=== PATIENT | male | born 1980 | race Caucasian/White ===

== ENCOUNTER → 2017-09-19 | Outpatient (CLI) | payer OTHER ==
--- NOTE | 2017-09-19 11:50 | CT ---
EXAMINATION TYPE: CT abdomen pelvis wo/w con DATE OF EXAM: 09/19/2017 COMPARISON: 12/08/2015 HISTORY: 36-year-old male complains of periumbilical pain and bloody stool. TECHNIQUE: Contiguous axial scanning of the abdomen and pelvis before and after administration of 100 ml Isovue 300 IV contrast. Delayed images through the kidneys and coronal/sagittal reconstructions performed. CT DLP: 2396 mGycm Automated exposure control for dose reduction was used. FINDINGS: Heart normal size without pericardial effusion. Lung bases clear without pleural effusion. Tiny subcentimeter hypodensity inferior peripheral right liver lobe, unchanged from 2016 and is too s mall for accurate CT catheterization, likely tiny cyst. Portal venous system is patent. No biliary du ctal dilatation. The gallbladder, adrenal glands, kidneys, spleen, and pancreas appear within normal limits. No dilated small bowel, free fluid, or free air. Normal appendix. Oral contrast progressed to the lower descending colon. Suggestion of sigmoid diverticulosis. There i s moderate circumferential wall thickening along the mid sigmoid. Some adjacent fat stranding likely relates to prominent pericolonic vessels. The overall length of involved bowel segment measures 11 cm long. No mesenteric or retroperitoneal lymphadenopathy. Bladder urine distended. Prostate gland measures 4.3 cm wide. No abnormal fluid collection in the pel vis or pelvic lymphadenopathy. Bones: No osseous destructive process. IMPRESSION: AN 11 CM LONG SEGMENT OF MID SIGMOID COLON SHOWS MODERATE CIRCUMFERENTIAL WALL THICKENING. CORRELATE FOR INFECTIOUS/INFLAMMATORY COLITIS OR CHRONIC DIVERTICULITIS. DIRECT VISUALIZATION TO EXCLUDE NEOPLA SM AFTER TREATMENT.
== END | disposition home or self-care (01) ==
LOC: RADCTMAIN 09:40
PROVIDERS: ATTEND Family Medicine
DX: R93.3 Abnormal findings on diagnostic imaging of other parts of digestive tract (principal); R10.9 Unspecified abdominal pain
CPT/HCPCS: 74178; Q9967

== ENCOUNTER 2021-11-29 10:33 | Emergency (ER) | payer OTHER ==
[2021-11-29 11:51] VITALS: TEMP 97.8
[2021-11-29] MEDS ORDERED: methylPREDNISolone SOD SUCCI 125 MG/2 ML VIAL IV STA (15:42)
[2021-11-29] MEDS ORDERED: FAMOTIDINE 20 MG/2 ML VIAL IV STA (15:42)
[2021-11-29] MEDS ORDERED: diphenhydrAMINE 50 MG/ML 1 ML VIAL IVP STA (15:42)
--- NOTE | 2021-11-29 15:45 | ED ---
General Adult HPI - General Chief complaint: Abdominal Pain Stated complaint: diverticulitis Time Seen by Provider: 11/29/21 15:26 Source: patient Mode of arrival: ambulatory Limitations: no limitations - History of Present Illness Initial comments: Dictation was produced using [employer] dictation software. please excuse any grammatical, word or spelling errors. Chief Complaint: 41-year-old male presents emergency department for persistent abdominal pain History of Present Illness: This is a 41-year-old male presents emergency depar tment for persistent abdominal pain. Approximately 3 weeks ago he was seen here in emergency department for suprapubic abdominal pain. He had a computed tomography scan performed that showed uncomplicated diverticulitis. Patient was put on a course of Augmentin discharge. He followed up with his primary care doctor for follow-up. He states that his symptoms never really improved. He was put on a second course of antibiotics by his primary care doctor. Patient states he is on day 8 of the second round of antibiotics. Patient states that his symptoms did not really improve. He spoke with his will call his primary care doctor's office he was instructed to come to the emergency dep artment. Patient has any fevers. He states that he does have some pelvic pain whenever he urinates. Denies any fever or constitutional symptoms. Patient offered pain medications however he refused. The ROS documented in this emergency department record has been reviewed and confirmed by me. Those systems with pertinent positive or negative responses have been documented in the HPI. All other systems are other negative and/or noncontributory. PHYSICAL EXAM: General Impression: Alert and oriented x3, not in acute distress HEENT: Normocephalic atraumatic, extra-ocular movements intact, pupils equal and reactive to light bilaterally, mucous membranes moist. Cardiovascular: Heart regular rate and rhythm Chest: Able to complete full sentences, no retractions, no tachypnea Abdomen: abdomen soft, very mild palpatory tenderness to the suprapubic area, non-distended, no organomegaly Musculoskeletal: Pulses present and equal in all extremities, no peripheral edema Motor: no focal deficits noted Neurological: CN II-XII grossly intact, no focal motor or sensory deficits noted Skin: Intact with no visualized rashes Psych: Normal affect and mood ED course: 41-year-old male presents emergency department for persistent suprapubic abdominal pain after being diagnosed with diverticulitis 3 weeks ago. Patient still having symptoms despite being on his second course of antibiotics. Vital signs upon arrival are within acceptable limits. Laboratory evaluation obtained. CBC, coag panel, metabolic panel is unremarkable. Lactic acidosis. Urinalysis is negative. Computed tomography scan of the abdomen and pelvis shows questionable minimal sigmoid colonic diverticulitis versus chronic changes with no acute abnormality. Patient reevaluated bedside [place] stable medical condition. Has point patient seems stable for discharge. Advised follow-up with primary care doctor. offered prescription for pain medicines and refused. - Related Data Home Medications Medication Instructions Recorded Confirmed Ciprofloxacin HCl [Cipro] 500 mg PO BID 11/29/21 11/29/21 metroNIDAZOLE [Flagyl] 500 mg PO TID 11/29/21 11/29/21 Allergies Allergy/AdvReac Type Severity Reaction Status Date / Time Iodinated Contrast Media Allergy Unknown Verified 11/29/21 16:14 Review of Systems ROS Statement: Those systems with pertinent positive or pertinent negative responses have been documented in the HPI. ROS Other: All systems not noted in ROS Statement are negative. Past Medical History Additional Past Medical History / Comment(s): diverticulitis History of Any Multi-Drug Resistant Organisms: None Reported Past Surgical History: Heart Catheterization Past Psychological History: Depression Smoking Status: Current every day smoker Past Alcohol Use History: None Reported Past Drug Use History: None Reported General Exam Limitations: no limitations Course Vital Signs 11/29/21 11/29/21 11:48 16:40 Temperature 97.8 F Pulse Rate 78 78 Respiratory 22 16 Rate Blood Pressure 127/77 138/78 O2 Sat by Pulse 97 98 Oximetry Medical Decision Making - Lab Data Result diagrams: 11/29/21 15:55 11/29/21 15:55 Lab Results 11/29/21 11/29/21 11/29/21 Range/Units 15:55 15:55 15:55 WBC 10.4 (3.8-10.6) k/uL RBC 5.11 (4.30-5.90) m/uL Hgb 15.5 (13.0-17.5) gm/dL Hct 47.2 (39.0-53.0) % MCV 92.2 (80.0-100.0) fL MCH 30.4 (25.0-35.0) pg MCHC 32.9 (31.0-37.0) g/dL RDW 11.7 (11.5-15.5) % Plt Count 181 (150-450) k/uL MPV 8.3 Neutrophils % 65 % Lymphocytes % 26 % Monocytes % 4 % Eosinophils % 3 % Basophils % 1 % Neutrophils # 6.8 (1.3-7.7) k/uL Lymphocytes # 2.7 (1.0-4.8) k/uL Monocytes # 0.5 (0-1.0) k/uL Eosinophils # 0.3 (0-0.7) k/uL Basophils # 0.1 (0-0.2) k/uL PT 11.6 (9.0-12.0) sec INR 1.1 (<1.2) APTT 25.7 (22.0-30.0) sec Sodium 139 (137-145) mmol/L Potassium 4.1 (3.5-5.1) mmol/L Chloride 103 (98-107) mmol/L Carbon Dioxide 24 (22-30) mmol/L Anion Gap 12 mmol/L BUN 14 (9-20) mg/dL Creatinine 0.98 (0.66-1.25) mg/dL Est GFR (CKD-EPI)AfAm >90 (>60 ml/min/1.73 sqM) Est GFR (CKD-EPI)NonAf >90 (>60 ml/min/1.73 sqM) Glucose 89 (74-99) mg/dL Plasma Lactic Acid Sd (0.7-2.0) mmol/L Calcium 9.6 (8.4-10.2) mg/dL Total Bilirubin 0.4 (0.2-1.3) mg/dL AST 37 (17-59) U/L ALT 22 (4-49) U/L Alkaline Phosphatase 59 (38-126) U/L Total Protein 7.3 (6.3-8.2) g/dL Albumin 4.9 (3.5-5.0) g/dL Urine Color Urine Appearance (Clear) Urine pH (5.0-8.0) Ur Specific [place] (1.001-1.035) Urine Protein (Negative) Urine Glucose (UA) (Negative) Urine Ketones (Negative) Urine Blood (Negative) Urine Nitrite (Negative) Urine Bilirubin (Negative) Urine Urobilinogen (<2.0) mg/dL Ur Leukocyte Esterase (Negative) Urine Mucus (None) /hpf 09/15/22 09/15/22 Range/Units 15:55 15:55 WBC (3.8-10.6) k/uL RBC (4.30-5.90) m/uL Hgb (13.0-17.5) gm/dL Hct (39.0-53.0) % MCV (80.0-100.0) fL MCH (25.0-35.0) pg MCHC (31.0-37.0) g/dL RDW (11.5-15.5) % Plt Count (150-450) k/uL MPV Neutrophils % % Lymphocytes % % Monocytes % % Eosinophils % % Basophils % % Neutrophils # (1.3-7.7) k/uL Lymphocytes # (1.0-4.8) k/uL Monocytes # (0-1.0) k/uL Eosinophils # (0-0.7) k/uL Basophils # (0-0.2) k/uL PT (9.0-12.0) sec INR (<1.2) APTT (22.0-30.0) sec Sodium (137-145) mmol/L Potassium (3.5-5.1) mmol/L Chloride (98-107) mmol/L Carbon Dioxide (22-30) mmol/L Anion Gap mmol/L BUN (9-20) mg/dL Creatinine (0.66-1.25) mg/dL Est GFR (CKD-EPI)AfAm (>60 ml/min/1.73 sqM) Est GFR (CKD-EPI)NonAf (>60 ml/min/1.73 sqM) Glucose (74-99) mg/dL Plasma Lactic Acid Sd 0.6 L (0.7-2.0) mmol/L Calcium (8.4-10.2) mg/dL Total Bilirubin (0.2-1.3) mg/dL AST (17-59) U/L ALT (4-49) U/L Alkaline Phosphatase (38-126) U/L Total Protein (6.3-8.2) g/dL Albumin (3.5-5.0) g/dL Urine Color Yellow Urine Appearance Clear (Clear) Urine pH 5.5 (5.0-8.0) Ur Specific [place] 1.016 (1.001-1.035) Urine Protein Negative (Negative) Urine Glucose (UA) Negative (Negative) Urine Ketones Negative (Negative) Urine Blood Negative (Negative) Urine Nitrite Negative (Negative) Urine Bilirubin Negative (Negative) Urine Urobilinogen <2.0 (<2.0) mg/dL Ur Leukocyte Esterase Trace H (Negative) Urine Mucus Rare H (None) /hpf Disposition Clinical Impression: Abdominal pain Disposition: HOME SELF-CARE Condition: Good Instructions (If sedation given, give patient instructions): Abdominal Pain (ED) Is patient prescribed a controlled substance at d/c from ED?: No Referrals: Oscar Cardoza DO [Primary Care Provider] - 1-2 days Time of Disposition: 17:44
[2021-11-29 16:10] LABS: Appearance,Urine Clear (Clear); Basophils # (A) 0.1 k/uL (0-0.2); Basophils % (A) 1 %; Bilirubin,Urine Negative (Negative); Blood,Urine Negative (Negative); Color,Urine Yellow; Eosinophils # (A) 0.3 k/uL (0-0.7); Eosinophils % (A) 3 %; Glucose,Urine (UA) Negative (Negative); HCT 47.2 % (39.0-53.0); HGB 15.5 gm/dL (13.0-17.5); Ketones,Urine Negative (Negative); Leukocyte Esterase,Urine Trace (Negative); Lymphocytes # (A) 2.7 k/uL (1.0-4.8); Lymphocytes % (A) 26 %; MCH 30.4 pg (25.0-35.0); MCHC 32.9 g/dL (31.0-37.0); MCV 92.2 fL (80.0-100.0); Mean Platelet Volume 8.3; Monocytes # (A) 0.5 k/uL (0-1.0); Monocytes % (A) 4 %; Mucus,Urine Rare /hpf; Neutrophils # (A) 6.8 k/uL (1.3-7.7); Neutrophils % (A) 65 %; Nitrite,Urine Negative (Negative); PH, Urine 5.5 (5.0-8.0); Platelet Count 181 k/uL (150-450); Protein,Urine Negative (Negative); RBC 5.11 m/uL (4.30-5.90); RDW 11.7 % (11.5-15.5); Specific Gravity,Urine 1.016 (1.001-1.035); Urobilinogen,Urine <2.0 mg/dL (<2.0); WBC 10.4 k/uL (3.8-10.6)
[2021-11-29 16:18] LABS: ALT 22 U/L (4-49); AST 37 U/L (17-59); African American GFR (CKD) >90 (>60 ml/min/1.73 sqM); Albumin 4.9 g/dL (3.5-5.0); Alkaline Phosphatase 59 U/L (38-126); Anion Gap 12 mmol/L; Blood Urea Nitrogen 14 mg/dL (9-20); Calcium 9.6 mg/dL (8.4-10.2); Carbon Dioxide 24 mmol/L (22-30); Chloride 103 mmol/L (98-107); Glucose 89 mg/dL (74-99); Non-African American GFR(CKD) >90 (>60 ml/min/1.73 sqM); Potassium 4.1 mmol/L (3.5-5.1); Sodium 139 mmol/L (137-145); Total Bilirubin 0.4 mg/dL (0.2-1.3); Total Protein 7.3 g/dL (6.3-8.2)
[2021-11-29 16:20] LABS: INR 1.1 (<1.2); Partial Thromboplastin Time 25.7 sec (22.0-30.0); Prothrombin Time 11.6 sec (9.0-12.0)
[2021-11-29 16:41] VITALS: RESP 16
--- NOTE | 2021-11-29 17:18 | CT ---
EXAMINATION TYPE: CT abdomen pelvis w con DATE OF EXAM: 11/29/2021 COMPARISON: 11/06/2021 HISTORY: abdominal pain. diverticulitis flare up CT DLP: 927 mGycm Automated exposure control for dose reduction was used. TECHNIQUE: Helical acquisition of images was performed from the lung bases through the pelvis. CONTRAST: Performed without Oral Contrast and with IV Contrast, patient injected with 100 mL of Isovue 300. FINDINGS: LUNG BASES: No significant abnormality is appreciated. LIVER/GB: No significant abnormality is appreciated. PANCREAS: No significant abnormality is seen. SPLEEN: No significant abnormality is seen. ADRENALS: No significant abnormality is seen. KIDNEYS: No significant abnormality is seen. FREE AIR: No free air is visualized. RETROPERITONEAL ADENOPATHY: None visualized REPRODUCTIVE ORGANS: No significant abnormality is seen URINARY BLADDER: No significant abnormality is seen. PELVIC ADENOPATHY: None visualized. OSSEOUS STRUCTURES: No significant abnormality is seen. BOWEL: Questionable minimal fat stranding involving the sigmoid colonic diverticula. No bowel obstru ction or free fluid. Normal appendix. OTHER: None IMPRESSION: QUESTIONABLE MINIMAL SIGMOID COLONIC DIVERTICULITIS VERSUS CHRONIC CHANGES. OTHERWISE NO ACUTE ABNORMALITY.
[2021-11-29 17:49] VITALS: BP 130/70; PULSE 77
== END 2021-11-29 18:00 | disposition home or self-care (01) ==
LOC: EC 10:33
DX: R10.2 Pelvic and perineal pain (principal); F17.200 Nicotine dependence, unspecified, uncomplicated; Z91.041 Radiographic dye allergy status
CPT/HCPCS: 36415; 80053; 83605; 85025; 85610; 85730; 81001; 74177; 99284; 96374; 96375; J1200; J2930; Q9967